=== PATIENT | female | born 1960 | race Caucasian/White ===

== ENCOUNTER 2025-03-19 18:30 | Outpatient (RCR) | payer MEDICAID, SELFPAY ==
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
--- NOTE | 2025-05-23 14:30 | HP.PT.NRP ---
Patient Information Patient Information: MEIR EMANUEL was seen in my office for initial evaluation on 02/02/25. The following Plan of Care was established for this patient: POC Established Initial Frequency: 2-3x /Week Initial Duration: 4-6 Weeks Anticipated Interventions Patient/Client Instruction: Educate patient on: Condition For the Purpose of:: To decrease pain, To increase ROM and To improve nutrient delivery to tissue Therapeutic Exercise to Include: Strength training, Flexibilty training, Passive ROM and Active ROM For the Purpose of:: To decrease pain, To increase ROM, To improve nutrient delivery to tissue, To improve muscle performance and motor function, To increase tolerance to activity/condition/position and To improve ability of physical actions for home/community/work/leisure Manual Therapy Techniques to Include: Mobilization, Passive ROM and Soft tissue mobilization For the Purpose of:: To increase ROM Thermo therapy (hot pack): Yes For the Purpose of:: To decrease pain, To increase ROM and To improve nutrient delivery to tissue Last Seen Last Seen: This patient was last seen in our office 03/19/25. Pertinent comments regarding their Physical therapy will appear below: Pt seen 11 visits of POC but did not attend any further visits. At this point, it has been over 2 months and i will discontinue from my care. At this point I will be discontinuing this patient from physical therapy. I would be happy to see this patient again in the future if found appropriate by the physician. Thank you! Rashel Blanco, DPT, OCS, CSCS Balance/Gait/Functional tests Balance/Special Test Scores Oswestry Neck Score: 15
== END 2025-03-19 19:00 | disposition home or self-care (01) ==
LOC: PT 18:30
DX: M50.90 Cervical disc disorder, unspecified, unspecified cervical region; M47.812 Spondylosis without myelopathy or radiculopathy, cervical region; G89.29 Other chronic pain
CPT/HCPCS: 97110; 97140; 97161; 97530